=== PATIENT | female | born 1965 | race Caucasian/White ===

== ENCOUNTER → 2021-08-20 10:57 | Outpatient (BNVA) | payer OTHER, SELFPAY | PROVIDERS: PCP Nurse Practitioner Family; Visit Provider Physician Assistant Medical | DX: S00.83XA Contusion of other part of head, initial encounter (principal); S63.501A Unspecified sprain of right wrist, initial encounter; S80.01XA Contusion of right knee, initial encounter; S16.1XXA Strain of muscle, fascia and tendon at neck level, initial encounter; S46.819A Strain of other muscles, fascia and tendons at shoulder and upper arm level, unspecified arm, initial encounter; S33.9XXA Sprain of unspecified parts of lumbar spine and pelvis, initial encounter; W01.198A Fall on same level from slipping, tripping and stumbling with subsequent striking against other object, initial encounter | CPT/HCPCS: 70450; 71101; 73110; 73130; 99204 ==

== ENCOUNTER → 2021-08-25 15:36 | Outpatient (BNVA) | payer OTHER, SELFPAY | PROVIDERS: PCP Nurse Practitioner Family; Visit Provider Physician Assistant Medical | DX: S06.2X0A Diffuse traumatic brain injury without loss of consciousness, initial encounter (principal); S63.501A Unspecified sprain of right wrist, initial encounter; S16.1XXA Strain of muscle, fascia and tendon at neck level, initial encounter; S33.9XXA Sprain of unspecified parts of lumbar spine and pelvis, initial encounter; S80.01XA Contusion of right knee, initial encounter; W18.30XA Fall on same level, unspecified, initial encounter; M54.2 Cervicalgia; R07.81 Pleurodynia | CPT/HCPCS: 99213 ==

== ENCOUNTER 2021-09-08 16:00 | Outpatient (RCR) | payer OTHER, SELFPAY ==
--- NOTE | 2021-08-28 07:41 | MHC.PT.EP ---
[facility] [place] Office [place] Office [place] Office [address] Peri Olson [address] [phone] F: [phone] F: [phone] F: [phone] F: [phone] Physical Therapy Plan of Care Date of Evaluation: Date of Surgery: Diagnosis: This is a 55 yo female presenting to skilled PT with a script cervicalgia, R rib contusions. Assessment: This is a 55 yo female presenting to skilled PT with a script cervicalgia, R rib contusions. Patient fell stepping off of a curb on ice on 08/19/21 while walking at work. She fell forward onto her face on the L side. She has pain neck, chest and rib pain still (also wrist pain noted L). She reports no LOC. She went to work connection the next day and denied ED ambulance. She had a CT scan of her DAHL, x-ray of ribs and wrist (all were negative). She has been getting DAHL's (located L side occipital/frontal), has L sided neck pain, L side mid back pain/ L sided rib pain. Pain is described as just hurts but I can still breath ok. 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 Pain increases with turning her head, turning her body to the L, sleeping and with ADLs and IADLs. She reports that she has been unable to care/lift her grandchildren as well and this is frustrating. Assessment reveals pain that ranges up to a 7/10. She demos decreased cervical and L shoulder ROM as well limited mobility throughout thoracic spine, decreased L shoulder strength, impaired gait pattern with guarded posture and limited cervical movements, impaired joint mobility associated with tight musculature as well as gross functional decline with lifting, reaching and transfers. She is a good candidate for skilled PT 2x/wk for 5wks (would only like to come a few times). Frequency and Duration: The patient will be seen 2x/wk for 5wks Short Term Goals: I in HEP Demo proper cervical alignment and posture with ther-ex (decreased guarded posture), no PT cuing Alf Goals: Demo normal cervical AROM without pain Improve pain to no more than 2/10 at the worst Improve NDI by 10 points Tolerate sleeping through the night without waking from pain Demo at least 5/5 shoulder strength without pain associated Treatment Plan: Modalities to reduce pain, spasms and effusion. Manual therapy to restore motion and function. Therapeutic exercise to improve strength and flexibility. Neuromuscular re-education for posture and balance. Therapeutic activities to return to functional activities of daily living. Electronically signed by: Luz Maria Mancini PT Please sign and return to therapist. Thank you for your referral.
--- NOTE | 2021-10-08 10:05 | MHC.PT.DC ---
[facility] [place] Office [place] Office [place] Office [address] Peri Olson [address] [phone] F: [phone] F: [phone] F: [phone] F: [phone] Physical Therapy Discharge Report Diagnosis: This is a 55 yo female presenting to skilled PT with a script cervicalgia, R rib contusions. Date of Surgery: Date of Evaluation: 08/27/21 Date of Discharge: 10/08/21 Treatments to Date: 3 Cancellations to Date: 0 No Shows to Date: 0 Discharge Status: Achieved Goals Improved Function Independent with HEP Patient Elected to Stop Discharge Summary: Kerry with improved pain, ROM and strength. She demos WFL ROM and strength without increase in pain. Mild achiness with weighted shoulder extensions but no other symptoms reported. Educated her on DC planning and patient in agreement. Has HEP and is motivated, I and compliant. DC to HEP. I kept her chart open for 30 days prior to DC in case symptoms returned. Patient was educated. Electronically signed by: Luz Maria Mancini, PT Please sign and return to therapist. Thank you for your referral.
== END 2021-10-08 10:05 | disposition home or self-care (01) ==
LOC: HO.PTCHIC 16:00
PROVIDERS: PCP Family Medicine; Visit Provider Physician Assistant Medical
DX: M54.2 Cervicalgia (principal); S20.211D Contusion of right front wall of thorax, subsequent encounter; Z91.81 History of falling
CPT/HCPCS: 97110; 97162

== ENCOUNTER → 2021-09-09 15:15 | Outpatient (BNVA) | payer OTHER, SELFPAY | PROVIDERS: PCP Family Medicine; Visit Provider Physician Assistant Medical | DX: S63.501D Unspecified sprain of right wrist, subsequent encounter (principal); S80.01XD Contusion of right knee, subsequent encounter; S33.9XXD Sprain of unspecified parts of lumbar spine and pelvis, subsequent encounter; S16.1XXD Strain of muscle, fascia and tendon at neck level, subsequent encounter; W18.30XD Fall on same level, unspecified, subsequent encounter | CPT/HCPCS: 99213 ==

== ENCOUNTER → 2021-10-13 15:20 | Outpatient (BNVA) | payer OTHER, SELFPAY | PROVIDERS: PCP Family Medicine; Visit Provider Physician Assistant Medical | DX: S63.501D Unspecified sprain of right wrist, subsequent encounter (principal); X50.3XXD Overexertion from repetitive movements, subsequent encounter | CPT/HCPCS: 99213 ==

== ENCOUNTER 2022-03-11 08:29 | Outpatient (REF) | payer OTHER, SELFPAY ==
--- NOTE | ~2022-03-11 | MM_ITS ---
EXAMINATION: MM SCREENING DIGITAL BREAST TOMOSYNTHESIS, BILATERAL CLINICAL INFORMATION: Screening. Asymptomatic. The lifetime risk of breast cancer based on the Tyrer-Cuzick Model is 13%. COMPARISON: Mammography: 04/06/2019, 03/17/2018, 03/15/2017; targeted left breast ultrasound 04/13/2019 TECHNIQUE: Digital breast tomosynthesis is performed in both the craniocaudal and mediolateral oblique views along with computer-aided detection (CAD). Synthesized 2D images are generated from the tomosynthesis. FINDINGS: There are scattered areas of fibroglandular density (ACR BI-RADS breast composition Category b). There are no significant masses, abnormal calcifications, or other abnormalities. Incidental intramammary node again seen right breast mid upper outer quadrant. Small cyst posterior 3:00 left breast noted on prior study is decreased and no longer clearly visible. The skin contours are smooth. MM/MM tomosynthesis screening BI IMPRESSION: No mammographic evidence of malignancy. ASSESSMENT: BI-RADS 2: Benign RECOMMENDATION: Routine annual mammography screening. This patient's information was entered into a reminder system with a target due date for their next mammogram.
== END 2022-03-11 08:30 | disposition home or self-care (01) ==
LOC: HO.MAMMO 08:29
PROVIDERS: PCP Family Medicine; Visit Provider Family Medicine
DX: Z12.31 Encounter for screening mammogram for malignant neoplasm of breast (principal)
CPT/HCPCS: 77063; 77067

== ENCOUNTER 2022-11-23 15:09 | Outpatient (REF) | payer OTHER, SELFPAY ==
--- NOTE | ~2022-11-23 | XR_ITS ---
EXAMINATION: XR CHEST CLINICAL INFORMATION: Chronic cough COMPARISON: Chest radiographs 08/20/2021, 09/07/2009 TECHNIQUE: 2 views of the chest were obtained. FINDINGS: The lungs are clear. The heart is normal in size. There is no airspace consolidation or groundglass opacity. The vascularity is normal. The costophrenic sulci are clear. The hilar and mediastinal contours are unremarkable. No visible acute bony abnormality. XR/XR chest 2V IMPRESSION: Unremarkable examination.
== END 2022-11-23 15:10 | disposition home or self-care (01) ==
LOC: HO.XRAY 15:09
PROVIDERS: PCP Family Medicine; Visit Provider Otolaryngology
DX: R05.3 Chronic cough (principal)
CPT/HCPCS: 71046

== ENCOUNTER 2022-12-18 08:25 | Outpatient (REF) | payer OTHER, SELFPAY ==
--- NOTE | ~2022-12-18 | CT_ITS ---
EXAMINATION: CT SOFT TISSUE NECK WITH CONTRAST CLINICAL INFORMATION: Dysphonia, dysphagia COMPARISON: None. TECHNIQUE: Following the administration of 85 mL of Omnipaque 350 intravenous contrast, helical imaging was performed in the axial plane with generation of coronal and sagittal reformatted images. This CT examination was performed using dose optimization techniques as appropriate, variously including the following: *Automated exposure control. *Adjustment of mA and/or kV according to patient size (this includes techniques or standardized protocols for targeted exams where dose is matched to indication/reason for exam; i.e. extremities or head). *Use of iterative reconstruction technique. DLP: 592.11 mGy-cm FINDINGS: Nasopharynx/skull base: The fat planes of the skull base and soft tissues of the nasopharynx are unremarkable. The paranasal sinuses and mastoid air cells are well aerated. The temporomandibular joints are normal. Suprahyoid neck: The oropharynx, oral cavity, and bilateral salivary gland tissues are unremarkable. There is mild matter prominence of the soft tissues at the tongue base, likely reflecting lingual tonsillar hypertrophy Infrahyoid neck: The hypopharynx and larynx are unremarkable. No aerodigestive tract mass. Thyroid: The thyroid gland is normal. Lymph nodes: There is no cervical chain lymphadenopathy. Lung apices: The partially visualized lung apices are clear. There is mild mosaic attenuation at the lung apices which likely reflect sequela of small airways disease. Mild cardiomegaly. Vascular structures: No hemodynamically significant stenosis, dissection, or occlusion. Osseous structures: The osseous structures are intact without suspicious focal lesion. Multilevel cervical spondylosis including severe right facet arthropathy from C2-C3 to C4-C5. 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 Mild rightward curvature of the cervical spine. Other: The imaged portions of the brain parenchyma are unremarkable. CT/CT soft tissue neck w IV con IMPRESSION: 1. No soft tissue abnormality of the neck is identified to correlate with reported symptoms. 2. Mild prominence of the soft tissues of the tongue base, likely reflecting lingual tonsillar hypertrophy. Recommend correlation with direct inspection.
[2022-12-18] MEDS: iohexoL 350 MG/ML 75 ML INFUS..BTL 85 ML IV (09:05)
[2022-12-18 13:20] LABS: Creatinine POC 0.6 mg/dL (0.5-1.4); GFR POC > 60
== END 2022-12-18 08:26 | disposition home or self-care (01) ==
LOC: HO.CT 08:25
PROVIDERS: PCP Family Medicine; Visit Provider Otolaryngology
DX: R49.0 Dysphonia (principal); D14.1 Benign neoplasm of larynx
CPT/HCPCS: 70491; 82565; Q9967

== ENCOUNTER 2023-03-17 07:57 | Outpatient (REF) | payer OTHER, SELFPAY | END 2023-03-17 07:58 | disposition home or self-care (01) | LOC: HO.MAMMO 07:57 | PROVIDERS: PCP Family Medicine; Visit Provider Family Medicine | DX: Z12.31 Encounter for screening mammogram for malignant neoplasm of breast (principal) | CPT/HCPCS: 77063; 77067 ==

== ENCOUNTER → 2023-03-17 08:15 | Outpatient (BNV) | payer OTHER, SELFPAY | PROVIDERS: PCP Family Medicine; Visit Provider Radiology Diagnostic Radiology | DX: Z12.31 Encounter for screening mammogram for malignant neoplasm of breast (principal) | CPT/HCPCS: 77063; 77067 ==

== ENCOUNTER 2025-06-01 11:04 | Emergency (ER) | payer BC, SELFPAY ==
[2025-06-01 11:22] VITALS: BP 160/72; PULSE 61; RESP 18; TEMP 36.3; O2SAT 97; BMI 41.2
--- NOTE | 2025-06-01 11:24 | ED_ITS ---
HPI - General Adult General Chief complaint: Urogenital-Female Stated complaint: Rectal Bleed Time Seen by Provider: 06/01/25 12:27 History of Present Illness ED Provider: Brandin AGUILERA narrative: The patient is a 59-year-old woman who had a uterine procedure 2 days ago at [facility] by Dr. Maribell Correa. I believe she had an endometrial ablation. The patient says that approximately 6 months ago she was seen by gynecology for some vaginal bleeding. She had an endometrial sample in the office and was placed on 3 months of progesterone. About 3 months ago she had another office procedure. The results of the office procedures were indeterminate and it was ultimately decided that she should have a formal endometrial evaluation in the operating room. This was done 2 days ago. She had an outpatient surgery under general anesthesia with hysteroscopy. The procedure seemed uneventful. Yesterday evening the patient had a bowel movement and there was blood in the toilet after the bowel movement. She says that there was normal appearing brown stool mixed with blood. She then had a 2nd episode of a similar nature this morning. Related Data Allergies Allergy/AdvReac Type Severity Reaction Status Date / Time bee pollen Allergy Unknown swelling Verified 06/01/25 11:26 oxycodone AdvReac Unknown nausea and Verified 06/01/25 11:26 vomiting ALL PAIN MEDICATION Allergy Unknown N/V Uncoded 06/01/25 11:26 Kiwi Allergy Unknown ithcy Uncoded 06/01/25 11:26 opiods AdvReac Unknown dizzy , Uncoded 06/01/25 11:26 vomiting Review of Systems 2 Review of Systems: Yes all other systems are reviewed and are negative [facility] Social History Social History Smoked in Last 30 Days: No Use of substances other than those prescribed or required for medical reasons: No Advance Directives: Yes Advance Directives Information Provided: Yes Advance Directives on File: No Do you have a plan to hurt others: No Plan Physical Exam ED Vital Signs: Vital Signs - 24 hr 06/01/25 11:22 06/01/25 15:02 Temperature 97.4 F 97.0 F Pulse Rate 61 75 Respiratory Rate 18 18 Blood Pressure 160/72 H 151/85 H Pulse Oximetry 97 98 Oxygen Delivery Method Room Air Room Air BMI result Body Mass Index 41.2 Const General: cooperative, healthy appearing, comfortable, no acute distress, well developed, alert, awake and Physically active Orientation/consciousness: patient oriented x3 HENMT Other: The face is symmetrical. ?Mucous membranes moist. Eyes Other: Pupils are round equal, conjunctivae are clear, extraocular movements intact Neck Neck: Yes normal visual inspection and Yes full ROM Resp Effort & Inspection: normal respiratory effort Auscultation: clear to auscultation bilaterally Cardio Rate: regular rate Rhythm: regular rhythm Heart sounds: S1 normal heart sound present and S2 normal heart sound present GI Other: The abdomen is soft and nontender. Rectal exam revealed a small amount of pale stool material. There was no blood in the rectal vault. Other: Unremarkable external genitalia. With the insertion of the vaginal speculum there was a very small amount of blood in the vaginal vault. No active bleeding. Skin Other: The skin is dry and unremarkable Neuro General: patient oriented x3, gait normal, tone normal, moves all extremities, no focal motor deficits and CN's II-XI intact bilaterally Extrem Other: There is no calf swelling or tenderness. No asymmetry. No peripheral edema. Course Course Course Narrative: This is a Rapid Medical Examination (RME) performed by Ehsan Pastrana PA-C in triage. Full HPI, ROS, assessment and treatment plan per primary provider in the Main ED. Hx: 59 yo F here for eval of rectal bleeding. recently on progesterone pill for thickened endometrium, had d&c done at [facility] 2 days ago. now having lower abd pain and bright red blood in her stool/ in the toilet bowl. no thinners. recent colonoscopy 11/2024. Plan: labs Medical Decision Making Medical Decision Making [facility] Narrative: The patient is a 59-year-old female who presents to the emergency room after having had 2 episodes of blood in her toilet when she had bowel movements. Two days ago she had a gynecological procedure with hysterectomy and possibly an endometrial ablation. The patient contacted her PCP and her pointing machine operator regarding the evidence of the blood in the toilet. Because these passages a blood occurred with the passage of stool she was advised to come to an emergency room for evaluation. The patient says that she had normal-appearing stool mixed with blood in the toilet. On exam here the patient looks entirely well. Vital signs are stable. Her CBC is entirely normal. A rectal exam did not reveal any sign of possible rectal bleeding. A pelvic exam reveals a small amount of blood in the vaginal vault with speculum exam. There was no ongoing bleeding. Since there was a small amount of blood in the vaginal vault and since there was no blood on the rectal exam I suspect that the patient's episodes of bleeding were more vaginal bleeding then rectal bleeding. This is not an unexpected findings after a recent procedure such as she had 2 days ago. She will be discharged since she looks entirely well. She should contact her pointing machine operator for any significant ongoing bleeding. She should return to the emergency room if significantly worse. Lab Data 06/01/25 11:51 06/01/25 11:50 Labs: Lab Results 06/01/25 06/01/25 Range/Units 11:50 11:51 WBC 8.3 (4.8-10.8) X10*3/uL RBC 4.90 (4.20-5.50) X10*6/uL Hgb 14.4 (12.0-16.0) g/dl Hct 44.2 (37.0-47.0) % MCV 90.2 (80.0-98.0) fL MCH 29.4 (27.0-33.0) pg MCHC 32.6 (31.0-35.0) g/dl RDW 12.2 (11.0-16.0) % Plt Count 232 (160-400) X10*3/uL MPV 10.1 (9.4-12.3) fL Immature Gran % (Auto) 0.2 (0.0-0.4) % Neut % (Auto) 47.6 (45-73) % Lymph % (Auto) 38.4 (20-40) % Hampton % (Auto) 10.4 (2-11) % Eos % (Auto) 2.3 (0-4) % Baso % (Auto) 1.1 (0-2) % Lymph # (Auto) 3.2 (1.2-4.9) X10*3/uL Hampton # (Auto) 0.9 (0.1-1.2) X10*3/uL Eos # (Auto) 0.2 (0.0-0.4) X10*3/uL Baso # (Auto) 0.1 (0.0-0.2) X10*3/uL Abs Immat Gran (auto) 0.02 (0.00-0.03) X10*3/uL Absolute Neuts (auto) 4.0 (2.0-8.3) x10*3/uL Absolute Nucleated RBC 0.000 (0.0-0.012) X10*3/uL Nucleated RBC % (auto) 0.0 (0.0-0.2) /100WBC Sodium 141 (135-145) mmol/L Potassium 4.2 (3.3-5.1) mmol/L Chloride 108 (96-108) mmol/L Carbon Dioxide 25 (22-29) mmol/L Anion Gap 12 (12-20) BUN 13 (9-16) mg/dL Creatinine 0.61 (0.5-1.4) mg/dL Estim Creat Clear Calc 125.1 Estimated GFR > 60 Random Glucose 95 (60-115) mg/dL Calcium 8.8 (8.4-10.2) mg/dL Magnesium 2.2 (1.6-2.6) mg/dL Total Bilirubin 0.5 (0.0-1.0) mg/dL AST 31 (5-31) U/L ALT 34 H (0-31) U/L Alkaline Phosphatase 58 (39-117) U/L Total Protein 7.2 (6.5-8.0) g/dL Albumin 4.3 (3.5-5.0) g/dL Lipase 113 H (8-78) U/L Discharge Plan Discharge Clinical Impression: Vaginal bleeding Patient Disposition: Home, Self-Care Additional Instructions: Your blood testing today seems very reassuring. I do not think you have sustained a dangerous amount of bleeding. I do not find any evidence that there was bleeding in your rectum. I think there is a small amount of blood in your vagina. I therefore think that your episodes of bleeding were more from a vaginal source than a rectal source. This makes me think that this is simply an expected bleeding following your recent procedure and my hope is that any ongoing bleeding will be minimal and will stop on its own. Please stay in touch with the your pointing machine operator and keep your appointment for follow up next week. If you have other questions please contact your primary care doctor. If you feel significantly worse please return to the emergency department. Referrals: Maribell Correa MD [Physician, DIRECTOR OF ORTHOPEDICS] Moises Ricks MD [Primary Care Provider, Internal Medicine] Interventions: ED Discharge Assessment Last Done: 06/01/25 15:02 Discharge Date/Time: 06/01/25 15:07 Print Language: Spanish
[2025-06-01 11:54] LABS: MANUAL DIFF FLAG NO
[2025-06-01 11:57] LABS: Hematocrit 44.2 % (37.0-47.0); Hemoglobin 14.4 g/dl (12.0-16.0); Imm Gran Abs Auto 0.02 X10*3/uL (0.00-0.03); Imm Gran Pct Auto 0.2 % (0.0-0.4); Lymphocytes Absolute Auto 3.2 X10*3/uL (1.2-4.9); Mean Corpuscular HGB Conc 32.6 g/dl (31.0-35.0); Mean Corpuscular Hemoglobin 29.4 pg (27.0-33.0); Mean Corpuscular Volume 90.2 fL (80.0-98.0); NRBC Abs Auto 0.000 X10*3/uL (0.0-0.012); NRBC Pct Auto 0.0 /100WBC (0.0-0.2); Platelet Count 232 X10*3/uL (160-400); Red Blood Count 4.90 X10*6/uL (4.20-5.50); White Blood Count 8.3 X10*3/uL (4.8-10.8)
[2025-06-01 12:10] LABS: Alanine Aminotransferase 34 U/L (0-31); Albumin Level 4.3 g/dL (3.5-5.0); Alkaline Phosphatase 58 U/L (39-117); Anion Gap 12 (12-20); Aspartate Amino Transferase 31 U/L (5-31); Blood Urea Nitrogen 13 mg/dL (9-16); Calcium 8.8 mg/dL (8.4-10.2); Carbon Dioxide 25 mmol/L (22-29); Chloride 108 mmol/L (96-108); Creatinine Clr Calc Pharmacy 125.1; Estimated Glomerular Filt Rate > 60; Lipase 113 U/L (8-78); Magnesium 2.2 mg/dL (1.6-2.6); Potassium 4.2 mmol/L (3.3-5.1); Sodium 141 mmol/L (135-145); Total Protein 7.2 g/dL (6.5-8.0)
--- OUTSIDE RECORDS SUMMARY | 2025-06-01 14:19 | XMS_ITS | Encounter Summary ---
Author Organization [facility] Address [address] [place] [id number] Phone Care Team Providers Care Sueding Machine Operator Name Role Phone Moises Ricks MD Primary Care Provider + Encounter Details Date Type Department Care Team (Latest Contact Info) Description 10/12/2024 Transcribe Orders [facility] Laboratory [address] [address] Martha Candelaria NP [address] [place] [address] Abdominal pain, epigastric (Primary Dx); Abdominal pain, right upper quadrant; Umbilical pain; Irritable bowel syndrome with diarrhea; Severely overweight; Fatty liver Social History Tobacco Use Types Packs/Day Years Used Date Smoking Tobacco: Never Smokeless Tobacco: Never Alcohol Use Standard Drinks/Week Comments Not Currently 0 (1 standard drink = 0.6 oz pur e alcohol) 1-2 times a year Education Answer Date Recorded Are you interested in more education? Not on coretta e 11/27/2022 Are you concerned about learning? Not on file 11/27/2022 No 11/27/2022 No 11/27/2022 Digital Access Answer Date Recorded No 12/28/2022 No 12/28/2022 Reliable internet access at home? Not on file 12/28/2022 Device with a working camera? Not on file Comments No Sex and Gender Information Value Date Recorded Sex Assigned at Female 04/22/2025 11:33 AM EDT Legal Sex Female 10:34 PM EDT Gender Identity Female 04/22/2025 11:33 AM EDT Sexual Orientation Straight 04/22/2025 11 :33 AM EDT documented as of this encounter Plan of Treatment Not on file documented as of this encounter Results * (ABNORMAL) Ferritin (10/12/2024 9:37 AM EDT) FERRITIN 321(H) 13 - 150 ug/L [facility] Blood 10/12/2024 9:37 AM EDT 10/12/2024 9:52 AM EDT Martha Candelaria SENIOR PROCESS ANALYST LAB BLOOD ORDERABLES Connie l Result [address] [address] * Iron and iron binding capacity (10/12/2024 9:37 AM EDT) Pathologist [facility] IRON 110 30 - 160 ug/dL [facility] IRON BINDING CAPACITY 357 228 - 428 ug/dL [facility] TRANSFERRIN SATURAT. 31 15 - 50 % [facility] Blood 10/12/2024 9:37 AM EDT 10/12/2024 9:52 AM EDT Martha Candelaria NP LAB BLOOD ORDERABLES Connie l Result [address] [address] * (ABNORMAL) LFTs (hepatic panel) (10/12/2024 9:37 AM EDT) ALKALINE PHOSPHATASE 66 39 - 117 U/L [facility] TOTAL BILIRUBIN 0.6 0.0 - 1.2 mg/dL [facility] DIRECT BILIRUBIN 0.2 0.0 - 0.2 mg/dL [facility] Bilirubin (Indirect) 0.4 0 - 1.5 mg/dL [facility] AST 39(H) 0 - 37 U/L [facility] ALT 40 0 - 40 U/L [facility] TOTAL PROTEIN 8.0 6.5 - 8.0 g/dL [facility] ALBUMIN 4.6 3.9 - 4.8 g/dL [facility] GLOBULIN 3.4 1 - 4.8 g/dL [facility] A/G Ratio 1.35 1.00 - 4.80 RATIO [facility] Blood 10/12/2024 9:37 AM EDT 10/12/2024 9:52 AM EDT Martha Candelaria SENIOR PROCESS ANALYST LAB BLOOD ORDERABLES Connie l Result [address] [address] * Hemoglobin A1c (10/12/2024 9:37 AM EDT) HEMOGLOBIN A1C 5.8 4.3 - 5.8 % [facility] Blood 10/12/2024 9:37 AM EDT 10/12/2024 9:52 AM EDT Martha Candelaria NP LAB BLOOD ORDERABLES Connie l Result Performing Organization Address City/[facility]/ZIP Co de Phone Number [address] [address] * Sedimentation rate (ESR) (10/12/2024 9:37 AM EDT) ESR 11 0 - 30 mm/h [facility] Blood 10/12/2024 9:37 AM EDT 10/12/2024 9:52 AM EDT Martha Candelaria SENIOR PROCESS ANALYST LAB BLOOD ORDERABLES Connie l Result Performing Organization Address City/[facility]/ZIP Co de Phone Number [address] [address] * C-Reactive Protein (10/12/2024 9:37 AM EDT) C REACTIVE PROTEIN <3.0 0.0 - 4.0 mg/L [facility] Blood 10/12/2024 9:37 AM EDT 10/12/2024 9:52 AM EDT Martha Candelaria NP LAB BLOOD ORDERABLES Connie l Result Performing Organization Address [facility] Co de Phone Number [address] [address] * CBC (10/12/2024 9:37 AM EDT) WBC 6.46 4.00 - 11.00 K/uL [facility] RBC 4.91 4.00 - 5.20 M/uL [facility] HGB 14.7 12.0 - 16.0 g/dL [facility] HCT 44.0 36.0 - 46.0 % [facility] PLT 243 150 - 450 K/uL [facility] MCV 89.6 80.0 - 100.0 fL [facility] MCH 29.9 27.0 - 31.0 pg [facility] MCHC 33.4 32.0 - 36.0 g/dL [facility] RDW 12.2 11.5 - 14.5 % [facility] MPV 10.3 8.4 - 12.0 fL [facility] NRBC 0.00 0.00 /100 WBCs [facility] ABSOLUTE NRBC 0.00 0.00 K/uL [facility] Blood 10/12/2024 9:37 AM EDT 10/12/2024 9:52 AM EDT Martha Candelaria NP LAB BLOOD ORDERABLES Connie l Result Performing Organization Address City/[facility]/ZIP Co de Phone Number [address] [address] documented in this encounter Visit Diagnoses Diagnosis Abdominal pain, epigastric- Primary Abdominal pain, right upper quadrant Umbilical pain Abdominal pain, unspecified site Irritable bowel syndrome with diarrhea Irritable bowel syndrome Severely overweight Morbid obesity Fatty liver Other chronic nonalcoholic liver disease documented in this encounter Care Teams Sueding Machine Operator Relationship Specialty Start Date End Date Moises Ricks MD [address] [place] [phone] PCP - General Family Medicine 04/25/20 documented as of this encounter Additional Source Comments The information contained in this document represents components of the legal health record. It is not the complete legal health record.[facility]
--- OUTSIDE RECORDS SUMMARY | 2025-06-01 14:19 | XMS_ITS | Clinical Summary ---
Author Organization [facility] Address [address] [place] [address] Phone Care Team Providers Care Oxygen Furnace Operator Name Role Phone Moises Ricks MD Primary Care Provider + Allergies Active Allergy Reactions Criticality Noted Date Comments Bee Pollen 05/03/2020 Codeine Dizziness,Nausea and /or Vomiting 05/03/2020 Hydrocodone-Acetaminophen Dizziness,Naus ea and/or Vomiting 05/03/2020 Kiwi Itching,Throat Tightness Medium 05/03/2020 Oxycodone Dizziness,Nausea and /or Vomiting 05/03/2020 Medications cholecalciferol (VITAMIN D3) 25 MCG (1,000 unit) tablet Take 1,000 Units by mouth daily. Active medroxyprogester one acetate (MEDROXYPROGESTE PIPO ORAL) Take by mouth. Active medroxyPROGESTER one (PROVERA) 10 MG tablet Take 10 mg by mouth daily. 10/17/2024 Active Encounters Date Type Department Care Team Description 04/23/2025 9:45 AM EDT - 04/23/2025 11:59 PM EDT Hospital Encounter [address] [address] Gordy Rene MD Discharge Disposition: Home or Self Care 04/17/2025 Transcribe Orders Virtual Department [address] [place] [phone] Gordy Rene MD DANIEL (nonalcoholic steatohepatitis) (Primary Dx) from Last 3 Months Social History Tobacco Use Types Packs/Day Years [...] with a working camera? Not on file Intimate Partner Violence Answer Date R ecorded Are you denied basic needs s uch as food, clothing, or medical care? No 12/11/2024 In the past 12 months have y ou been in a relationship with a person who hurts, threatens, or tries to control you? No 12/11/2024 Are you denied basic needs s uch as food, clothing, or medical care? No 12/11/2024 In the past 12 months have y ou been in a relationship with a person who hurts, threatens, or tries to control you? No 12/11/2024 Comments No Sex and Gender Information Value Date Recorded Sex Assigned at Female 04/22/2025 11:33 AM EDT Legal Sex Female 10:34 PM EDT Gender Identity Female 04/22/2025 11:33 AM EDT Sexual Orientation Straight 04/22/2025 11 :33 AM EDT Last Filed Vital Signs Vital Sign Reading Time Taken Comments Blood Pressure 136/73 12/11/2024 1:51 PM EDT Pulse 84 12/11/2024 1:51 PM EDT Temperature 35.8 C (96.5 F) 12/11/2024 1:34 PM EDT Respiratory Rate 20 12/11/2024 1:51 PM EDT Oxygen Saturation 100% 12/11/2024 1:51 PM EDT Inhaled Oxygen Concentration - - Weight 120.2 kg (265 lb) 12/06/2024 2:53 PM EDT Height 167.6 cm (5' 6 ) 12/06/2024 2:53 PM EDT Body Mass Index 42.77 12/06/2024 2:53 PM EDT Plan of Treatment Health Maintenance Due Date Last Done Comments LIPID PANEL 1965 DEPRESSION SCREENING 1975 HEPATITIS C SCREENING 11/20/1981 HIV ONE-TIME SCREENING (18-65 YEARS) 11/20/1981 HEPATITIS A VACCINES (1 of 2 - Risk 2-dose series) 11/20/1982 PNEUMOCOCCAL VACCINES (50+ years) (1 of 2 - PCV) 11/20/1982 PAP SMEAR 11/20/1984 MAMMOGRAM 2003 COLOGUARD 11/20/2008 FIT TEST 11/20/2008 FOBT 11/20/2008 SIGMOIDOSCOPY 11/20/2008 VIRTUAL COLONOSCOPY 11/20/2008 RSV VACCINE (1 - Risk 50-74 years 1-dose series) 11/20/2013 ZOSTER VACCINES (1 of 2) 11/20/2013 INFLUENZA VACCINE (#1) 2025 06/07/2017 COVID-19 VACCINE ( season) 2025 08/10/2022, 08/14/2021, 11/22/2020, Additional history exists Adult Td,Tdap Booster 06/07/2027 06/07/2017 SCREENING FOR DIABETES 10/13/2027 10/12/2024 COLONOSCOPY 12/11/2034 12/11/2024, 05/07/2020 COLORECTAL CANCER SCREENING 12/11/2034 SMOKING STATUS SCREENING (Once After 26 Yrs) Completed 12/11/2024 HIB VACCINES Aged Out No longer eligi ble based on patient's age to complete this topic MENINGOCOCCAL VACCINES (ACWY) Aged Out No longer eligible based on patient's age to complete this topic MENINGOCOCCAL VACCINES (B) Aged Out N o longer eligible based on patient's age to complete this topic Medical Devices Not on file Procedures Procedure Name Priority Date/Time Associated Diagnosis Comments US LIVER WITH ELASTOGRAPHY Routine 04/23/2025 10:32 AM EDT DANIEL (nonalcoholic steatohepatitis) ENDOSCOPY, COLON 12/11/2024 1:05 PM EDT from Last 3 Months or Most Recently Relevant to Health Maintenance Results * US LIVER WITH ELASTOGRAPHY (04/23/2025 10:32 AM EDT) MGB IMG RECOMMENDATION COMMENT 1.2 cm echogenic focus gallbladder; Differential: adherent calculus; gallbladder polyp [facility] Anatomical Region Laterality Modality Abdomen Ultrasound 04/23/2025 11:5 6 AM EDT Impressions 04/23/2025 12:09 PM EDT Increased echogenicity of the hepatic parenchyma. This is a nonspecific finding indicating diffuse hepatocellular disease and limiting the sensitivity of this exam. In the correct clinical scenario, this commonly represents hepatic steatosis. Median Young's modulus of 10.75 kPa consistent with Metavir (F3) Severe fibrosis. The is an elevated median Young's modulus present indicating moderate/severe fibrosis. The median Young's modulus is above the Mild-Moderate threshold level of 9.40 kPa. 1.2 cm echogenic non-shadowing non-mobile focus within the gallbladder. Findings may represent an adherent calculus. The gallbladder polyp as an alternative differential consideration. Follow-up sonography in six months recommended. Shear-wave Elastography threshold values: Normal Young's modulus reported in literature: 8.29 kPa ELAS Narrative 04/23/2025 12:09 PM EDT US LIVER WITH ELASTOGRAPHY Referring clinician's provided indication for this examination in Epic: Outside Radiology Order; Other Indication (Please use free text); DANIEL US Indications: Outside Radiology Order; Other Indication (Please use free text); DANIEL. Comparison: There is no prior study available for comparison. Technique: Serial longitudinal and transverse real time grayscale images, were acquired through the abdomen utilizing a curved array transducer. Color Doppler images were used assess vascularity. Ten shear wave images were acquired in the right hepatic lobe of the liver per Elastography protocol. FINDINGS: Liver: Examination of the liver demonstrates diffusely increased echogenicity with heterogeneous echotexture.. There is a smooth hepatic surface contour. There is a bilobed cyst with thin intervening septation at the left hepatic lobe measuring 1.9 x 1.5 x 1.4 cm. There are no solid hepatic masses. No intrahepatic bile duct dilatation. Color interrogation of the portal vein reveals patency and hepatopetal flow. Elastography examination: Quality: The elastography evaluation was diagnostic. Median Young's modulus of 10.75 kPa in the right hepatic lobe. Gallbladder: There is an echogenic non-shadowing non-mobile echogenic focus within the gallbladder measuring 1.2 x 0.9 cm. There is no pericholecystic fluid, or gallbladder wall thickening. The common bile duct is normal in caliber measuring 4 mm in diameter. Sonographic Ca's sign was assessed and negative. Ascites: None. Procedure Note Milvia Junior MD - 04/23/2025 US LIVER WITH ELASTOGRAPHY Referring clinician's provided indication for this examination in Epic:Outside Radiology Order; Other Indication (Please use free text); DANILE US Indications: Outside Radiology Order; Other Indication (Please use freetext); DANIEL. Comparison: There is no prior study available for comparison. Technique: Serial longitudinal and transverse real time grayscale images,were acquired through the abdomen utilizing a curved array transducer.Color Doppler images were used assess vascularity. Ten shear wave imageswere acquired in the right hepatic lobe of the liver per Elastographyprotocol. FINDINGS: Liver: Examination of the liver demonstrates diffusely increasedechogenicity with heterogeneous echotexture.. There is a smooth hepaticsurface contour. There is a bilobed cyst with thin intervening septationat the left hepatic lobe measuring 1.9 x 1.5 x 1.4 cm. There are no solidhepatic masses. No intrahepatic bile duct dilatation. Color interrogationof the portal vein reveals patency and hepatopetal flow. Elastography examination: Quality: The elastography evaluation was diagnostic. Median Young's modulus of 10.75 kPa in the right hepatic lobe. Gallbladder: There is an echogenic non-shadowing non-mobile echogenicfocus within the gallbladder measuring 1.2 x 0.9 cm. There is nopericholecystic fluid, or gallbladder wall thickening. The common bileduct is normal in caliber measuring 4 mm in diameter. SonographicMurphy's sign was assessed and negative. Ascites: None. IMPRESSION: Increased echogenicity of the hepatic parenchyma. This is a nonspecificfinding indicating diffuse hepatocellular disease and limiting thesensitivity of this exam. In the correct clinical scenario, this commonlyrepresents hepatic steatosis. Median Young's modulus of 10.75 kPa consistent with Metavir (F3) Severefibrosis. The is an elevated median Young's modulus present indicatingmoderate/severe fibrosis. The median Young's modulus is above theMild-Moderate threshold level of 9.40 kPa. 1.2 cm echogenic non-shadowing non-mobile focus within the gallbladder.Findings may represent an adherent calculus. The gallbladder polyp as analternative differential consideration. Follow-up sonography in six monthsrecommended. Shear-wave Elastography threshold values: Normal Young's modulus reported in literature: 8.29 kPa ELAS us Gordy Rene MD IMG US ABDOMEN Final Result * ENDOSCOPY, COLON (12/11/2024 1:05 PM EDT) Narrative Transcriptions Gordy Rene MD - 12/11/2024 1:05 PM EDT [facility] Patient Name: Kerry Diaz Attending MD:: GORDY RENE MD, Procedure Date: 12/11/2024 1:05 PM Date of : 1965 Age: 59 Admit Type: Outpatient Gender: Female Room: [facility] Referring MD: Moises Ricks Exam Type: Colonoscopy Indications: Surveillance: Personal history of adenomatouspolyps on last colonoscopy > 5 years ago, Lastcolonoscopy: May 2020 Medications: Monitored Anesthesia Care Procedure: Informed consent was obtained from the patientafter discussion of the indications, limitations, alternatives, benefits, and risks of the procedure. Risks specifically discussed include but are not limited to medication reactions, missed lesions, bleeding, perforation, or the need for emergent surgery. Throughout the procedure, the patient's blood pressure, pulse, end-tidal CO2, and oxygensaturations were monitored continuously. The Olympus adult variable colonoscope [id number] #7 was introduced through the anus and advanced to the cecum, identified by the appendiceal orifice, ileocecal valve and palpation. The colonoscopy was performed without difficulty. The patient tolerated the procedure fairly well. The quality of the bowel preparation was evaluated using the BBPS (BostonBowel Preparation Scale) with scores of: Right Colon = 3, Transverse Colon = 3 and Left Colon = 3 (entiremucosa seen well with no residual staining, smallfragments of stool or opaque liquid). The total BBPS score equals 9. The ileocecal valve, appendiceal orifice, and rectum were photographed. Complications: No immediate complications. Estimated blood loss:None. Findings: The perianal and digital rectal examinations were normal. Pertinent negatives include normalsphincter tone. Retroflexion in the right colon was performed. The exam was otherwise without abnormality ondirect and retroflexion views. Impression: - The examination was otherwise normal on directand retroflexion views. - No specimens collected. Recommendation: - Repeat colonoscopy in 7 years for surveillance. GORDY RENE MD 12/11/2024 1:32:34 PM This report has been signed electronically. Number of Addenda: 0 Note Initiated On: 12/11/2024 1:05 PM Procedure Code(s): --- Professional --- 63441, Colonoscopy, flexible; diagnostic, including collection of specimen(s) by brushing or washing, when performed (separateprocedure) --- Technical --- 42000, Colonoscopy, flexible; diagnostic, including collection of specimen(s) by brushing or washing, when performed (separateprocedure) Diagnosis Code(s): --- Professional --- Z86.010, Personal history of colonic polyps --- Technical --- Z86.010, Personal history of colonic polyps CPT copyright 2021 [employer]. All rights reserved. The codes documented in this report are preliminary and upon invoice coder reviewmay be revised to meet current compliance requirements. Procedure Date: 12/11/2024 1:05:04 PM [address] [place], [place] [id number] Moises Ricks MD GI PROCEDURE ORDERABLES Final Result from Last 3 Months or Most Recently Relevant to Health Maintenance [facility] Address: [address] [facility] Member Subscriber Plan / Payer (Ef fective 2019-Present) Name:Kerry Diaz Relation to Subscriber:Self Name:Emily Kerry Payer ID:Not on file Type:HMO Address: [address] O O O [facility] Member Subscriber Plan / Payer (Ef fective 2019-Present) Name:Kerry Diaz Relation to Subscriber:Self Name:EmilyAnaKerry Payer ID:Not on file Type:HMO Address: [address] [facility] HMO Member Subscriber Plan / Payer (Ef fective 2019-Present) Name:Kerry Diaz Relation to Subscriber:Self Name:Emily Kerry Payer ID:Not on file Type:HMO Address: [address] Care Teams Oxygen Furnace Operator Relationship Specialty Start Date End Date Moises Ricks MD [address] [place] [phone] PCP - General Family Medicine 04/25/20 Additional Source Comments The information contained in this document represents components of the legal health record. It is not the complete legal health record.[facility]
--- OUTSIDE RECORDS SUMMARY | 2025-06-01 14:19 | XMS_ITS | Encounter Summary ---
Author Organization [facility] Address [address] [place] [phone] Phone Care Team Providers Care Vamp Stitcher Name Role Phone Moises Ricks MD Primary Care Provider + Encounter Details Date Type Department Care Team (Late st Contact Info) Description 12/11/2024 Procedure Pass [facility] Endoscopy Admitting Dept Virtual Department [address] [place] [phone] Social History Tobacco Use Types Packs/Day Years [...] AM EDT documented as of this encounter Functional Status * Calculated C-SSRS Risk Score (Lifetime/Recent) Answer Date of Assessment Author No Risk Indicated 12/11/2024 12:39 PM EDT Zhanna Hearn RN * [place] Suicide Severity Rating Scale (Screener/Recent Self-Report) Question Answer Date of Assessment Author 1. Wish to be (Past 1 Month) No 12/11/2024 12:39 PM EDT Zhanna Hearn RN 2. Non-Specific Active Suicidal Thoughts (Past 1 Month) No 12/11/2024 12:39 PM EDT Zhanna Hearn RN 6. Suicidal Behavior (Lifetime) No 12/11/2024 12:39 PM EDT Zhanna Hearn RN documented as of this encounter Plan of Treatment Not on file documented as of this encounter Visit Diagnoses Not on filedocumented in this encounter Care Teams Vamp Stitcher Relationship Specialty Start Date End Date Moises Ricks MD [address] [place] [phone] PCP - General Family Medicine 04/25/20 documented as of this encounter Additional Source Comments The information contained in this document represents components of the legal health record. It is not the complete legal health record.[facility]
--- OUTSIDE RECORDS SUMMARY | 2025-06-01 14:19 | XMS_ITS | Encounter Summary ---
Author Organization [facility] Address [address] [facility] [address] [place] [phone] Phone Care Team Providers Care Field Laboratory Operator Name Role Phone Moises Ricks MD Primary Care Provider + Encounter Details Date Type Department Care Team (Latest Contact Info) Description 04/17/2025 Transcribe Orders Virtual Department [address] [place] [address] Hermilo Yadav MD [address] [place] [phone] [email or web address] DANIEL (nonalcoholic steatohepatitis) (Primary Dx) Social History Tobacco Use Types Packs/Day Years [...] documented as of this encounter Results * US LIVER WITH ELASTOGRAPHY (04/23/2025 10:32 AM EDT) MGB IMG RECOMMENDATION COMMENT 1.2 cm echogenic focus gallbladder; Differential: adherent calculus; gallbladder polyp [facility] Anatomical Region Laterality Modality Abdomen Ultrasound 04/23/2025 [...] Young's modulus reported in literature: 8.29 kPa ADELSO Narrative 04/23/2025 12:09 PM EDT US LIVER [...] reported in literature: 8.29 kPa ELAS us Hermilo Yadav MD IMG US ABDOMEN Final Result documented in this encounter Visit Diagnoses Diagnosis DANIEL (nonalcoholic steatohepatitis)- Primary Other chronic nonalcoholic liver disease DANIEL (nonalcoholic steatohepatitis) Other chronic nonalcoholic liver disease documented in this encounter Care Teams Field Laboratory Operator Relationship Specialty Start Date End Date Moises Ricks MD [address] [place] [phone] PCP - General Family Medicine 04/25/20 documented as of this encounter Additional Source Comments The information contained in this document represents components of the legal health record. It is not the complete legal health record.[facility]
--- OUTSIDE RECORDS SUMMARY | 2025-06-01 14:20 | XMS_ITS | Encounter Summary ---
Author Organization [facility] Address [address] [facility] [address] [place] [address] Phone Care Team Providers Care Alignment Specialist Name Role Phone Moises Ricks MD Primary Care Provider + Encounter Details Date Type Department Care Team (Late st Contact Info) Description 05/07/2020 Procedure Pass [facility] Endoscopy Admitting Dept Virtual Department [address] [place] [address] Social History Tobacco Use Types Packs/Day Years Used Date Smoking Tobacco: Never Smokeless Tobacco: Never Alcohol Use Standard Drinks/Week Comments Not Currently 0 (1 standard drink = 0.6 oz pur e alcohol) 1-2 times a year Comments No Sex and Gender Information Value [...] on filedocumented in this encounter Care Teams Alignment Specialist Relationship Specialty Start Date End Date Moises Ricks MD [address] [place] [phone] PCP - General Family Medicine 04/25/20 documented as of this encounter Additional Source Comments The information contained in this document represents components of the legal health record. It is not the complete legal health record.[facility]
--- OUTSIDE RECORDS SUMMARY | 2025-06-01 14:20 | XMS_ITS | Patient Health Record ---
Author Organization [facility] Address [address] [facility] [place] [address] Care Team Providers Care Music Ministries Director Name Role Phone Yong Hope MD Primary Care Provider Unavailabdiaziz e Hank, Marce Unavailable [phone] Allergies Allergen (clinical drug ingredient) Drug/Non Drug Allergy documented on EMR Reaction Allergy Type Onset Date Status oxycodone Oxycodone HCl Unknown Drug Allergy Act carlton acetaminophen / oxycodone Percocet Unknown Drug Allergy Active Vicodin Unknown Drug Allergy Active codeine Codeine Unknown Drug Allergy Active Reason For Referral No Information Medications Medication SIG (Take, Route, Frequency, Duration) Notes Start Date End Date Status Gabapentin 300mg at bedtime orally daily; Duration: 10 days 10/25/2017 Not-Taking Ibuprofen 800 MG 1 tablet with food o r milk as needed Orally Three times a day; Duration: 10 days 10/25/2017 Not-Taking Osteo Bi-Flex Adv Double St Active Naprosyn 500 MG 1 tablet with food o r milk as needed Orally every 12 hrs; Duration: 30 days 08/11/2018 Active Gabapentin ; Duration: 30 Not- Taking Acetaminophen Extra Strength 500 MG 2 tablets as needed Orally every 6 hrs; Duration: 7 days 10/25/2017 Not-Taking Walking Boot/Pneumatic As directed Wear PRN 2017 Active Social History Tobacco Use: Social History Observation Description Date Details (start date - stop date) Never Smoker NA - NA Tobacco Use/Smoking Question Answer Notes Are you a: nonsmoker Additional Findings: Tobacco Non-User Current no n-smoker Alcohol Screen Question Answer Notes Did you have a drink containing alcohol in the p ast year? No Points 0 Interpretation Negative Tobacco use other than smoking: Question Answer Notes Are you an other tobacco user? No Problems Problem Type SNOMED Code ICD Code Onset Dates Problem Status W/U Status Risk Notes Problem Localized, primary osteoarthritis of the ankle and/or foot (927755060) Primary osteoarthrit is, left ankle and foot (M19.072) Active confirmed Problem Acquired hammer toe of left foot (2243559311803007) Other hammer toe(s) (acquired), left foot (M20.42) Active confirmed Problem Acquired hammer toe of right foot (6614321869939361) Hammer toe of right foot (M20.41) Active confirmed Problem Acquired hammer toe of left foot (0858937209017807) Hammer toe of left foot (M20.42) Active confirmed Plan Of Treatment Pending Test Test Name Order Date X ray : Foot, left 2V 08/11/2018 Ultrasound : Doppler : Veins Leg Left Insurance Providers Payer Name Payer Address Payer Phone Subscriber Number Group Number Insured Name Patient Relationship to Insured Coverage Start Date Coverage End Date Cigna [address] [place] [address] [id number] Kerry Diaz Self - patient is the insured Medical (General) History Medical History History ICD Code Arthritis Back,Hip,and Knee pain Broken bones Chicken pox Headaches Surgical History Surgery Date(Month/Year) knee surgery, left elbow sx vein surgery HT L2nd, tenotomy/capsulotomy L B/M 11/10
[2025-06-01 15:02] VITALS: BP 151/85; PULSE 75; RESP 18; TEMP 36.1; O2SAT 98
== END 2025-06-01 15:07 | disposition home or self-care (01) ==
PROVIDERS: Physician Assistant Medical; Emergency Provider Emergency Medicine; PCP Family Medicine
DX: N93.9 Abnormal uterine and vaginal bleeding, unspecified (principal); Z90.710 Acquired absence of both cervix and uterus
CPT/HCPCS: 36415; 80053; 83690; 83735; 85025; 99283; 99284